=== PATIENT | female | born 1995 | race Caucasian/White ===

== ENCOUNTER 2024-02-29 22:45 | Inpatient (IN) | payer BC, OTHER ==
[2024-02-29] MEDS: ELECTROLYTE-148 SOLN 1,000 ML IV SCH (23:30)
[2024-02-29 23:58] LABS: BASO % 0.2 % (0-2.0); EOS % 0.5 % (0-4.5); HEMATOCRIT 31.1 % (32.4-45.2); HEMOGLOBIN 10.1 GM/dL (10.7-15.3); LYMPH % 27.4 % (8-40); MCH 28.6 pg (25.7-33.7); MCHC 32.6 g/dl (32.0-36.0); MEAN CELL VOLUME 87.7 fl (80-96); MEAN PLT VOLUME 8.1 fl (7.5-11.1); MONO % 7.6 % (3.8-10.2); NEUT % 64.3 % (42.8-82.8); PLATELET COUNT 309 10^3/uL (134-434); RBC 3.55 M/mm3 (3.60-5.2); RDW 17.4 % (11.6-15.6); WHITE BLOOD COUNT 8.2 K/mm3 (4.0-10.0)
[2024-03-01 00:04] LABS: INR 0.91 (0.83-1.09); PROTHROMBIN TIME (PATIENT) 10.3 SEC (9.7-13.0)
[2024-03-01 00:07] LABS: ACTIVATED PTT 25.3 SECONDS (25.2-36.5)
[2024-03-01 00:16] LABS: CHLORIDE 108 mmol/L (98-107); POTASSIUM 4.5 mmol/L (3.5-5.1); SODIUM 138 mmol/L (136-145)
[2024-03-01 00:17] LABS: ANION GAP 7 mmol/L (4-13); BLOOD UREA NITROGEN 8.9 mg/dL (7-18); CALCIUM 8.2 mg/dL (8.5-10.1); CO2 23 mmol/L (21-32); GLUCOSE,RANDOM 85 mg/dL (74-106)
[2024-03-01 00:21] LABS: CREATININE 0.7 mg/dL (0.55-1.3)
[2024-03-01] MEDS ORDERED: LIDOCAINE HCL 1% PRESERVATIVE FREE - 30ML VIAL ONE (01:33)
[2024-03-01] MEDS ORDERED: OXYTOCIN 20 UNITS in 0.9% NS 20 UNIT/1,000 ML INFUS.BAG IV ONE ×2 (01:33→13:29)
[2024-03-01] MEDS ORDERED: TERBUTALINE SULFATE 1 MG/1 ML VIAL SQ ONE (01:39)
[2024-03-01] MEDS: TERBUTALINE SULFATE 1 MG/1 ML VIAL SQ ONE (01:43)
[2024-03-01] MEDS ORDERED: NALOXONE HCL 0.4 MG/ML VIAL IVPUSH PRN (02:08)
[2024-03-01] MEDS ORDERED: FENTANYL CITRATE/PF 50 MCG/ML VIAL ONE (02:10)
[2024-03-01] MEDS ORDERED: BUPIVACAINE HCL/PF 0.25% (2.5MG/ML) 10 ML VIAL ONE (02:10)
[2024-03-01] MEDS ORDERED: FENTANYL/BUPIVACAINE/NS/PF - PCEA - 50 ML DISP.SYRIN EP ONE ×2 (02:13→06:48)
[2024-03-01] MEDS: FENTANYL/BUPIVACAINE/NS/PF - PCEA - 50 ML DISP.SYRIN EP SCH (02:22)
[2024-03-01 03:28] VITALS: BMI 31.6
[2024-03-01] MEDS: OXYTOCIN 20 UNITS in 0.9% NS 20 UNIT/1,000 ML INFUS.BAG IV SCH (11:25)
[2024-03-01 12:21] LABS: HIV INTERPRETATION NEGATIVE (NEGATIVE)
[2024-03-01] MEDS ORDERED: BISACODYL 10 MG SUPP.RECT RC PRN (12:29)
[2024-03-01] MEDS ORDERED: WITCH HAZEL 50% (TUCKS) 40 PAD/JAR PAD TP PRN (12:29)
[2024-03-01] MEDS ORDERED: BENZOCAINE 28 GM HEMORRHOIDAL OINTMENT TP PRN (12:29)
[2024-03-01] MEDS ORDERED: oxyCODONE HCL 5 MG TABLET PO PRN (12:29)
[2024-03-01] MEDS ORDERED: METHYLERGONOVINE MALEATE 0.2 MG/1 ML AMP IM PRN (12:29)
[2024-03-01] MEDS ORDERED: BENZOCAINE 20% 57 GM BOTTLE TP PRN (12:29)
[2024-03-01] MEDS ORDERED: ACETAMINOPHEN 325 MG TABLET (FP) ONE (13:28)
[2024-03-01] MEDS: ACETAMINOPHEN 325 MG TABLET (FP) PO PRN (13:35)
[2024-03-01] MEDS: IBUPROFEN 600 MG TABLET (FP) PO PRN (22:01)
[2024-03-02 07:59] LABS: BASO % 0.3 % (0-2.0); EOS % 0.2 % (0-4.5); HEMATOCRIT 22.1 % (32.4-45.2); HEMOGLOBIN 7.1 GM/dL (10.7-15.3); LYMPH % 15.2 % (8-40); MCH 28.9 pg (25.7-33.7); MCHC 32.4 g/dl (32.0-36.0); MEAN CELL VOLUME 89.4 fl (80-96); MEAN PLT VOLUME 8.1 fl (7.5-11.1); MONO % 5.4 % (3.8-10.2); NEUT % 78.9 % (42.8-82.8); PLATELET COUNT 213 10^3/uL (134-434); RBC 2.47 M/mm3 (3.60-5.2); RDW 17.6 % (11.6-15.6); WHITE BLOOD COUNT 13.7 K/mm3 (4.0-10.0)
[2024-03-02 15:20] LABS: BASO % 0.3 % (0-2.0); EOS % 0.4 % (0-4.5); HEMATOCRIT 23.2 % (32.4-45.2); HEMOGLOBIN 7.4 GM/dL (10.7-15.3); LYMPH % 19.7 % (8-40); MCH 28.7 pg (25.7-33.7); MEAN CELL VOLUME 89.5 fl (80-96); MEAN PLT VOLUME 8.3 fl (7.5-11.1); MONO % 5.1 % (3.8-10.2); NEUT % 74.5 % (42.8-82.8); PLATELET COUNT 230 10^3/uL (134-434); RDW 17.7 % (11.6-15.6); WHITE BLOOD COUNT 12.7 K/mm3 (4.0-10.0)
[2024-03-02] MEDS ORDERED: SENNOSIDES/DOCUSATE COMBO (SENNA PLUS) TABLET (UD) PO PRN (22:00)
[2024-03-03 12:15] VITALS: BP 109/76; PULSE 69; RESP 16; TEMP 98.7
== END 2024-03-03 13:30 | disposition home or self-care (01) | DRG 807 ==
LOC: JDEL 22:45 → JLDR 23:10 → J3W 03-01 14:00
PROVIDERS: ADMIT Obstetrics & Gynecology Obstetrics; ATTEND Obstetrics & Gynecology Obstetrics
PROC: 10E0XZZ Delivery of Products of Conception, External Approach (ICD-10-PCS; principal; 2024-03-01)
PROC: 0KQM0ZZ Repair Perineum Muscle, Open Approach (ICD-10-PCS; 2024-03-01)
DX: O70.1 Second degree perineal laceration during delivery (principal); Z37.0 Single live birth; O90.81 Anemia of the puerperium; Z3A.38 38 weeks gestation of pregnancy
CPT/HCPCS: 36415; 59025; 59409; 80048; 85025; 85610; 85730; 86780; 86850; 86900; 86901; 87389